=== PATIENT | male | born 1935 | race Caucasian/White ===

== ENCOUNTER 2017-09-14 17:58 | Inpatient (IN) | payer MEDICARE ==
--- NOTE | 2017-09-14 18:13 | ED Physician Chart ---
ED Chief Complaint/HPI - Patient Information Date Seen:: 09/14/17 Time Seen:: 17:50 Chief Complaint:: Chest Pain History of Present Illness:: onset x 2 days of intermittent, exertional, retrosternal chest pain, dyspnea, HUTCHINS, and diaphoresis; no H/As, neck pain, N/V, Abd, Pain, A/N/V/D/C, fever, chills, or urinary s/s Historian:: Patient, EMS Review:: Nurse's Note Reviewed, EMS run form Reviewed <Say Lee - Last Filed: 09/14/17 18:07> - Patient Information Allergies:: Allergies Allergy/AdvReac Type Severity Reaction Status Date / Time ciprofloxacin [From Cipro] Allergy Verified 09/14/17 18:12 Vitals:: Vital Signs - 8 hr 09/14/17 09/14/17 09/14/17 18:12 18:14 18:30 Temp 99.2 F 98.3 F HR 95 93 99 RR 24 20 BP 138/93 138/93 138/93 O2 Sat % 96 95 09/14/17 22:32 Temp HR 95 RR 20 BP 118/63 O2 Sat % 99 <Jason iTneo - Last Filed: 09/14/17 22:43> ED Review of Systems - Review of Systems General/Constitutional: Fever, No chills, No weight loss, No weakness, No diaphoresis, No edema, No loss of appetite Skin: No skin lesions, No rash, No bruising Head: No headache, No light-headedness Eyes: No loss of vision, No pain, No diplopia ENT: No earache, No nasal drainage, No sore throat, No tinnitus Neck: No neck pain, No swelling, No thyromegaly, No stiffness, No mass noted Cardio Vascular: Chest pain, Palpitations, PND, No orthopnea, No edema Pulmonary: SOB, Cough, No sputum, No wheezing GI: No nausea, No vomiting, No diarrhea, No pain, No melena, No hematochezia, No constipation, No hematemesis G/U: No dysuria, No frequency, No hematuria Musculoskeletal: No bone or joint pain, No back pain, No muscle pain Endocrine: Polyuria, Polydipsia Psychiatric: No prior psych history, No depression, No anxiety, No suicidal ideation, No homicidal ideation, No auditory hallucination, No visual hallucination Hematopoietic: No bruising, No lymphadenopathy Allergic/Immuno: No urticaria, No angioedema Neurological: No syncope, No focal symptoms, No weakness, No paresthesia, No headache, No seizure, No dizziness, No confusion, No vertigo <CarinajessicajoaquínSay Last Filed: 09/14/17 18:07> ED Past Medical History - Past Medical History Obtainable: Yes Past Medical History: HTN, DM, CAD, Dyslipidemia Family History: Diabetes Melitus, HTN Social History: Smoker, No Alcohol, No Drug Use, Single Surgical History: CABG Psychiatricy History: None Medication: Reviewed <CarinajessicajoaquínSay Filed: 09/14/17 18:07> ED Physical Exam - Physical Examination General/Constitutional: Awake, Well-developed, well-nourished, Alert, No distress, GCS 15, Non-toxic appearing, Ambulatory Head: Atraumatic Eyes: Lids, conjuctiva normal, PERRL, EOMI Skin: Nl inspection, No rash, No skin lesions, No ecchymosis, Well hydrated, No lymphadenopathy ENMT: External ears, nose nl, TM canals nl, Nasal exam nl, Lips, teeth, gums nl , Oropharynx nl, Tonsils nl Neck: Nontender, Full ROM w/o pain, No JVD, No nuchal rigidity, No bruit, No mass, No stridor Respiratory: Nl effort/Exclusion, Clear to Auscultation, No Wheeze/Rhonchi/Rales Cardio Vascular: RRR, No murmur, gallop, rubs, NL S1 S2, Carotid/Femoral/Distal pulses equal bilaterally GI: No tenderness/rebounding/guarding, No organomegaly, No hernia, Normal BS's, Nondistended, No mass/bruits, No McBurney tenderness : No CVA tenderness Extremities: No tenderness or effusion, Full ROM, normal strength in all extremities, No edema, Normal digits & nails Neuro/Psych: Alert/oriented, DTR's symmetric, Normal sensory exam, Normal motor strength, Judgement/insight normal, Mood normal, Normal gait, No focal deficits Misc: Normal back, No paraspinal tenderness <Say Lee Last Filed: 09/14/17 18:07> ED Labs/Radiology/EKG Results - EKG Interpretations EKG Time:: 18:03 Rate & Rhythm: 111; ST Comments:: old ASMI; non-specific st-t changes <Say Lee - Last Filed: 09/14/17 18:07> - Lab Results Results: Laboratory Tests 09/14/17 09/14/17 09/14/17 18:30 18:30 18:30 WBC 9.9 RBC 4.82 Hgb 13.0 Hct 40.1 L MCV 83.2 MCH 27.1 MCHC Differential 32.5 RDW 18.7 Plt Count 145 L MPV 9.8 Neutrophils % 67.8 Lymphocytes % 19.2 L Monocytes % 11.0 H Eosinophils % 1.0 Basophils % 1.0 PT 10.6 INR 1.02 D-Dimer 2480 H Sodium 140 Potassium 4.3 Chloride 105 Carbon Dioxide 29.4 Anion Gap 9.9 BUN 24 Creatinine 1.7 H Est GFR ( Amer) TNP Est GFR (Non-Af Amer) TNP BUN/Creatinine Ratio 14.1 Glucose 162 H Calcium 8.7 Total Bilirubin 1.0 AST 18 ALT 16 Alkaline Phosphatase 74 Creatine Kinase 40 Troponin I B-Natriuretic Peptide Total Protein 6.7 Albumin 3.3 L Globulin 3.4 Albumin/Globulin Ratio 1.0 Triglycerides 157 H Cholesterol 90 LDL Cholesterol Direct 47 L HDL Cholesterol 24 09/14/17 09/14/17 18:30 18:30 WBC RBC Hgb Hct MCV MCH MCHC Differential RDW Plt Count MPV Neutrophils % Lymphocytes % Monocytes % Eosinophils % Basophils % PT INR D-Dimer Sodium Potassium Chloride Carbon Dioxide Anion Gap BUN Creatinine Est GFR ( Amer) Est GFR (Non-Af Amer) BUN/Creatinine Ratio Glucose Calcium Total Bilirubin AST ALT Alkaline Phosphatase Creatine Kinase Troponin I 0.05 B-Natriuretic Peptide 457.0 H Total Protein Albumin Globulin Albumin/Globulin Ratio Triglycerides Cholesterol LDL Cholesterol Direct HDL Cholesterol - Radiology Results Results: hyflo-l-ttm- plueral effusion <Jason Tineo - Last Filed: 09/14/17 22:43> ED Assessment - Assessment General Assessment: unstable angina <Jason Tineo - Last Filed: 09/14/17 22:43> ED Septic Shock - . Is Septic Shock (SBP<90, OR Lactate>4 mmol\L) present?: No <Say Lee - Last Filed: 09/14/17 18:07> - <6hrs of presentation: Vital Signs: Vital Signs - 8 hr 09/14/17 09/14/17 09/14/17 18:12 18:14 18:30 Temp 99.2 F 98.3 F HR 95 93 99 RR 24 20 BP 138/93 138/93 138/93 O2 Sat % 96 95 09/14/17 22:32 Temp HR 95 RR 20 BP 118/63 O2 Sat % 99 <Jason Tineo - Last Filed: 09/14/17 22:43> ED Reassessment (Disposition) - Reassessment Reassessment Condition:: Unchanged - Patient Disposition Discharge/Transfer:: Acute Care w/in this hosp Admitted to:: ICU Admitting Medical Physician:: Markie Quinones Condition at Disposition:: Unchanged <Jason Tineo - Last Filed: 09/14/17 22:43> ED Discharge Plan <Say Lee - Last Filed: 09/14/17 18:07> <Jason Tineo - Last Filed: 09/14/17 22:43> - Patient Disposition Admit/Discharge/Transfer: Acute Care w/in this hosp Condition at Disposition: Unchanged
[2017-09-14] MEDS ORDERED: Aspirin 81mg Chewable Tab PO STA (18:14)
[2017-09-14] MEDS ORDERED: NITROGLYCERIN OINT 2% 1 INCH PACKET TP STA (18:20)
[2017-09-14] MEDS ORDERED: Aspirin 81mg Chewable Tab ONE (18:28)
[2017-09-14] MEDS ORDERED: NITROGLYCERIN OINT 2% 1 INCH PACKET TP ONE (18:28)
[2017-09-14 18:38] LABS: % LYMPHOCYTES 19.2 % (20.0-50.0); % NEUTROPHILS 67.8 % (40.0-80.0); HEMATOCRIT 40.1 % (41.0-60); MEAN CELL VOLUME 83.2 fl (80-99); MEAN CORPUSCULAR HEMOGLOBIN 27.1 pg (27.0-31.0); MEAN CORPUSCULAR HGB CONC 32.5 pg (28.0-36.0); MEAN PLATELET VOLUME 9.8 fl; NEUTROPHILE ABSOLUTE 6.7 Th/cmm (1.8-8.0); PLATELET COUNT 145 Th/cmm (150-400); RED BLOOD COUNT 4.82 Mil/cmm (3.80-5.80); RED CELL DISTRIBUTION WIDTH 18.7 % (11.5-20.0); WHITE BLOOD COUNT 9.9 Th/cmm (4.8-10.8)
[2017-09-14 19:02] LABS: INR 1.02 (0.5-1.4); PROTHROMBIN TIME (TEST) 10.6 SECONDS (9.5-11.5)
[2017-09-14 19:04] LABS: ALKALINE PHOSPHATASE 74 U/L (34-104); ANION GAP 9.9 (7.0-16.0); BUN - UREA NITROGEN 24 mg/dL (7-25); BUN/CREATININE RATIO 14.1; CALCIUM SERUM 8.7 mg/dL (8.6-10.3); CARBON DIOXIDE 29.4 mEq/L (21.0-31.0); CHLORIDE 105 mEq/L (98-107); CHOLESTEROL 90 mg/dL (<200); CREATININE - SERUM 1.7 mg/dL (0.7-1.3); GLUCOSE 162 mg/dL (70-105); POTASSIUM SERUM 4.3 mEq/L (3.5-5.1); SGOT 18 U/L (13-39); SGPT/ALT 16 U/L (7-52); SODIUM SERUM 140 mEq/L (136-145); TRIGLYCERIDES 157 mg/dL (<150)
[2017-09-14] MEDS ORDERED: Acetaminophen 500 MG TAB ONE (22:05)
[2017-09-14 23:32] LABS: ABG SOURCE ATERIAL; HCO3 28.8 mEq/L (20.0-26.0); pH 7.47 (7.35-7.45)
[2017-09-14 23:33] LABS: ALLEN TEST Positive; FIO2 28
[2017-09-15] MEDS: INSULIN ASPART SLIDING SCALE 100 UNITS/ML UNIT SUBQ SCH ×5 (00:06→23:51)
[2017-09-15 03:28] LABS: ANION GAP 9.2 (7.0-16.0); BUN - UREA NITROGEN 26 mg/dL (7-25); BUN/CREATININE RATIO 15.3; CALCIUM SERUM 8.2 mg/dL (8.6-10.3); CARBON DIOXIDE 28.6 mEq/L (21.0-31.0); CHLORIDE 106 mEq/L (98-107); CHOLESTEROL 82 mg/dL (<200); CREATININE - SERUM 1.7 mg/dL (0.7-1.3); POTASSIUM SERUM 3.8 mEq/L (3.5-5.1); SODIUM SERUM 140 mEq/L (136-145); TRIGLYCERIDES 207 mg/dL (<150)
[2017-09-15 03:31] LABS: GLUCOSE 180 mg/dL (70-105)
[2017-09-15 03:33] LABS: % BASOPHILS 0.8 % (0.0-2.0); % EOSINOPHILS 1.3 % (0.0-5.0); % LYMPHOCYTES 28.2 % (20.0-50.0); % MONOCYTES 11.2 % (2.0-10.0); % NEUTROPHILS 58.5 % (40.0-80.0); HEMATOCRIT 35.9 % (41.0-60); MEAN CELL VOLUME 83.3 fl (80-99); MEAN CORPUSCULAR HEMOGLOBIN 27.8 pg (27.0-31.0); MEAN CORPUSCULAR HGB CONC 33.4 pg (28.0-36.0); MEAN PLATELET VOLUME 10.5 fl; NEUTROPHILE ABSOLUTE 4.2 Th/cmm (1.8-8.0); PLATELET COUNT 128 Th/cmm (150-400); RED BLOOD COUNT 4.31 Mil/cmm (3.80-5.80); RED CELL DISTRIBUTION WIDTH 18.5 % (11.5-20.0)
[2017-09-15 03:34] LABS: WHITE BLOOD COUNT 7.2 Th/cmm (4.8-10.8)
[2017-09-15 05:00] LABS: URINE BILIRUBIN SMALL (NEGATIVE); URINE BLOOD LARGE (NEGATIVE); URINE GLUCOSE (UA) NEGATIVE (NEGATIVE); URINE KETONE 15 mg/dL (NEGATIVE); URINE PROTEIN 30 mg/dL (NEGATIVE); URINE UROBILINOGEN 0.2 E.U./dL (0.2 - 1.0)
[2017-09-15 05:01] LABS: URINE COLOR YELLOW
[2017-09-15 05:06] LABS: URINE BACTERIA 1+ /hpf (NONE SEEN); URINE EPITHELIAL CELLS OCCASIONAL /lpf (FEW); URINE RBC 25-50 /hpf (0-5)
--- NOTE | 2017-09-15 07:38 | Diagnostic Imaging Report ---
Portable chest x-ray Time: 1919 hours History: Chest pain Allowing for portable technique the heart size is normal. No focal pulmonary parenchymal processes. No hilar or mediastinal abnormalities. Bilateral pacemakers identified in place. Multiple metallic sutures are noted status post transsternal thoracotomy. Impression: No acute abnormalities.
--- NOTE | 2017-09-15 09:35 | History and Physical ---
History of Present Illness - HPI Chief Complaint: chest pain and sob HPI: This is a 82 year old male who has a 1 day history of Chest pain and Sob. According to patient he was walking about 20 ft when he felt very winded associated with SOB, he was recently discharged from [facility]. Due to the following reasons patient is now admitted. Upon examination patient denies any chest pain but complains of right shoulder pain he states that the pain just started here at the hospital and denies any recent falls or injuries. Vital Signs: Last Vital Signs Temp 98.2 F 09/15/17 05:00 Pulse 89 09/15/17 07:26 Resp 19 09/15/17 07:26 BP 110/66 09/15/17 07:00 Pulse Ox 95 09/15/17 07:26 Past Medical History Cardiovascular: Report: CHF, HTN GI: Report: No Pertinent Hx Musculoskeletal: Report: No Pertinent Hx Rheumatologic: Report: No pertinent Hx - Past Surgical History Past Surgical History: CABG Social History Smoke: No Alcohol: None Drugs: None Lives: With Family, Other - Medications Home Medications: Home Medication Medication Instructions Recorded Type Unobtainable [Unobtainable] 09/14/17 History - Allergies Allergies/Adverse Reactions: Allergies Allergy/AdvReac Type Severity Reaction Status Date / Time ciprofloxacin [From Cipro] Allergy Verified 09/14/17 18:12 Review of Systems - Review of Systems Constitutional: Report: No Significant Eyes: Report: No Significant Respiratory: Report: Other (SOB when o2 is off) Cardiovascular: Report: No Significant Gastrointestinal: Report: No Significant Musculoskeletal: Report: Shoulder Pain (right) Neurological: Report: Weakness Physical Exam - Physical Exam HEENT: Report: Ears Nose Throat within normal limits Neck: Report: Within normal limits Cardiovascular Systems: Report: +s1/s2 noted, Regular, Rate and Rhythm Respiratory: Report: Breath Sounds are within normal limits, Clear to Auscultation of lung perkins Abdomen: Report: Non-tender to palpation Back: Report: Inspection of back is within normal limits. Extremities: Report: Non-tender to palpation. Skin: Report: Color of skin is within normal limits Neuro/Psych: Report: Mood affect is within normal limits, A+Ox3 - Lab Results All Lab Results last 24 hours: Laboratory Results - last 24 hr 09/15/17 09/15/17 09/15/17 00:03 01:40 03:03 WBC 7.2 D RBC 4.31 Hgb 12.0 Hct 35.9 L D MCV 83.3 MCH 27.8 MCHC Differential 33.4 RDW 18.5 Plt Count 128 L MPV 10.5 Neutrophils % 58.5 Lymphocytes % 28.2 Monocytes % 11.2 H Eosinophils % 1.3 Basophils % 0.8 D-Dimer Sodium Potassium Chloride Carbon Dioxide Anion Gap BUN Creatinine Est GFR ( Amer) Est GFR (Non-Af Amer) BUN/Creatinine Ratio Glucose POC Glucose 122 H Hemoglobin A1c % Calcium Troponin I B-Natriuretic Peptide Triglycerides Cholesterol LDL Cholesterol Direct HDL Cholesterol TSH Urine Source RANDOM Urine Color YELLOW Urine Clarity CLOUDY Urine pH 5.0 Ur Specific [place] 1.025 Urine Protein 30 H Urine Glucose (UA) NEGATIVE Urine Ketones 15 H Urine Blood LARGE H Urine Nitrate NEGATIVE Urine Bilirubin SMALL H Urine Urobilinogen 0.2 Ur Leukocyte Esterase MODERATE H Urine RBC 25-50 H Urine WBC 6-10 H Ur Epithelial Cells OCCASIONAL Urine Bacteria 1+ H Urine Yeast MANY H 09/15/17 09/15/17 09/15/17 03:03 03:03 03:03 WBC RBC Hgb Hct MCV MCH MCHC Differential RDW Plt Count MPV Neutrophils % Lymphocytes % Monocytes % Eosinophils % Basophils % D-Dimer 2270 H Sodium 140 Potassium 3.8 Chloride 106 Carbon Dioxide 28.6 Anion Gap 9.2 BUN 26 H Creatinine 1.7 H Est GFR ( Amer) TNP Est GFR (Non-Af Amer) TNP BUN/Creatinine Ratio 15.3 Glucose 180 H D POC Glucose Hemoglobin A1c % Calcium 8.2 L Troponin I 0.05 B-Natriuretic Peptide 292.0 H Triglycerides 207 H Cholesterol 82 LDL Cholesterol Direct 48 L HDL Cholesterol 19 L TSH Urine Source Urine Color Urine Clarity Urine pH Ur Specific [place] Urine Protein Urine Glucose (UA) Urine Ketones Urine Blood Urine Nitrate Urine Bilirubin Urine Urobilinogen Ur Leukocyte Esterase Urine RBC Urine WBC Ur Epithelial Cells Urine Bacteria Urine Yeast 09/15/17 09/15/17 09/15/17 03:03 03:03 06:46 WBC RBC Hgb Hct MCV MCH MCHC Differential RDW Plt Count MPV Neutrophils % Lymphocytes % Monocytes % Eosinophils % Basophils % D-Dimer Sodium Potassium Chloride Carbon Dioxide Anion Gap BUN Creatinine Est GFR ( Amer) Est GFR (Non-Af Amer) BUN/Creatinine Ratio Glucose POC Glucose 185 H Hemoglobin A1c % 7.4 H Calcium Troponin I B-Natriuretic Peptide Triglycerides Cholesterol LDL Cholesterol Direct HDL Cholesterol TSH 1.28 Urine Source Urine Color Urine Clarity Urine pH Ur Specific [place] Urine Protein Urine Glucose (UA) Urine Ketones Urine Blood Urine Nitrate Urine Bilirubin Urine Urobilinogen Ur Leukocyte Esterase Urine RBC Urine WBC Ur Epithelial Cells Urine Bacteria Urine Yeast - Assessment Assessment: Current Active Problems Problem Status Onset CHEST PAIN AND EXERTIONAL DYSPNEA Acute Elevated ddimer Acute UTI HTN hx cabg - Plan Plan: VQ SCAN and venous doppler cardiology consult ok to move out of ICU if ok with Cardio PT eval pain mgmt fall precautions monitor troponin continue current plan of care D/W Dr. Quinones
[2017-09-15] MEDS ORDERED: Ipratropium Neb 0.5 mg/2.5 mL UD HHN PRN (09:39)
[2017-09-15] MEDS ORDERED: guaiFENesin 200 MG/10 ML UDC PO PRN (09:39)
[2017-09-15] MEDS ORDERED: Albuterol Nebulizer 2.5mg/3mL HHN PRN (09:39)
--- NOTE | 2017-09-15 10:47 | Diagnostic Imaging Report ---
Bilateral lower extremity Doppler venous ultrasound exam HISTORY: Pain/swelling Sonographic sector images were obtained through the deep venous systems of both legs. Associated Doppler data was obtained. The exam demonstrates patency of the common femoral, superficial femoral, popliteal, and posterior tibial veins bilaterally. Specifically, no thrombus is seen. There are normal compressibility and augmentation responses. IMPRESSION: Negative exam for deep vein thrombophlebitis.
[2017-09-15] MEDS: Levofloxacin 500mg/100mL 500 MG/100 ML BAG IV SCH (11:53)
[2017-09-15] MEDS ORDERED: Magnesium Hydroxide (MOM) 30 mL UDC PO PRN (14:27)
--- NOTE | 2017-09-15 22:08 | Consultation ---
DATE OF CONSULTATION: HEMATOLOGY ONCOLOGY CONSULTATION REFERRING PHYSICIAN: Dr. Quinones. REASON FOR CONSULTATION: Low platelets and elevated D-dimer. HISTORY OF PRESENT ILLNESS: The patient is an 82-year-old pleasant gentleman, who had CABG surgery recently and required continued hospitalized in [facility] and had rehab. He was doing well until a few days when he started getting shortness of breath on minimal activity; therefore, he was admitted and found to have elevated D-dimer and with slight drop in the platelet count. The venous duplex study of lower extremity was negative. Chest x-ray was negative. The patient had slight elevation of the creatinine, which prohibited doing CT angiogram, therefore V/Q scan was done and it was taken; however, the results are not available yet. PAST MEDICAL HISTORY: Hypertension, CHF, coronary artery disease. PAST SURGICAL HISTORY: CABG. MEDICATIONS: Reviewed. PHYSICAL EXAMINATION: GENERAL: Awake, not in respiratory distress. VITAL SIGNS: Stable. HEENT: Atraumatic. NECK: No jugular venous distention. No lymph nodes. CHEST: Clear. Sternotomy scar well healed. ABDOMEN: Soft. EXTREMITIES: Unremarkable. LABORATORY DATA: Creatinine 1.7. D-dimer 2270 with normal upper limited 400. White count 7.2, platelets 128, and hemoglobin 12. ASSESSMENT: Elevated D-dimer in this patient with shortness of breath. Normal chest x-ray. Will require evaluation for pulmonary embolus. I am starting the patient on prophylactic dose of heparin for now and await the results of the V/Q scan. Thank you, Dr. Quinones for allowing us to participating in the care of this interesting case for you. JOB# [id number]
[2017-09-16 06:32] LABS: % BASOPHILS 0.3 % (0.0-2.0); % EOSINOPHILS 1.2 % (0.0-5.0); % LYMPHOCYTES 25.1 % (20.0-50.0); % MONOCYTES 9.9 % (2.0-10.0); % NEUTROPHILS 63.5 % (40.0-80.0); HEMATOCRIT 36.5 % (41.0-60); HEMOGLOBIN 11.9 gm/dL (12-16); MEAN CELL VOLUME 83.7 fl (80-99); MEAN CORPUSCULAR HEMOGLOBIN 27.4 pg (27.0-31.0); MEAN CORPUSCULAR HGB CONC 32.8 pg (28.0-36.0); NEUTROPHILE ABSOLUTE 3.9 Th/cmm (1.8-8.0); RED BLOOD COUNT 4.36 Mil/cmm (3.80-5.80); RED CELL DISTRIBUTION WIDTH 18.4 % (11.5-20.0); WHITE BLOOD COUNT 6.2 Th/cmm (4.8-10.8)
[2017-09-16] MEDS: INSULIN ASPART SLIDING SCALE 100 UNITS/ML UNIT SUBQ SCH ×4 (06:41→23:53)
[2017-09-16 06:44] LABS: PLATELET COUNT 162 Th/cmm (150-400)
[2017-09-16 07:01] LABS: ANION GAP 10.5 (7.0-16.0); BUN - UREA NITROGEN 20 mg/dL (7-25); BUN/CREATININE RATIO 13.3; CALCIUM SERUM 8.9 mg/dL (8.6-10.3); CARBON DIOXIDE 28.2 mEq/L (21.0-31.0); CHLORIDE 106 mEq/L (98-107); CREATININE - SERUM 1.5 mg/dL (0.7-1.3); GLUCOSE 127 mg/dL (70-105); POTASSIUM SERUM 3.7 mEq/L (3.5-5.1); SODIUM SERUM 141 mEq/L (136-145)
--- NOTE | 2017-09-16 07:33 | Diagnostic Imaging Report ---
Exam: VQ scan HISTORY: Pulmonary embolus. Findings: Utilizing 5.3 mCi of technetium 99 M MAA the perfusion portion examination was performed multiple planes. Patient was not able to tolerate the ventilation portion examination therefore the study is limited. The study demonstrates normal perfusion of the lung parenchyma bilaterally without filling defects. IMPRESSION: Limited examination, only perfusion portion examination available for interpretation. Grossly no evidence of for pulmonary emboli bilaterally.
[2017-09-16] MEDS: Levofloxacin 500mg/100mL 500 MG/100 ML BAG IV SCH (10:09)
--- NOTE | 2017-09-16 10:12 | General Progress Note ---
Subjective - Review of Systems Events since last encounter: patient c/o right shoulder pain denies cp,sob Objective - Results Result Diagrams: 09/16/17 06:20 09/16/17 06:20 Recent Labs: Laboratory Last Values WBC 6.2 Th/cmm (4.8-10.8) 09/16/17 06:20 RBC 4.36 Mil/cmm (3.80-5.80) 09/16/17 06:20 Hgb 11.9 gm/dL (12-16) L 09/16/17 06:20 Hct 36.5 % (41.0-60) L 09/16/17 06:20 MCV 83.7 fl (80-99) 09/16/17 06:20 MCH 27.4 pg (27.0-31.0) 09/16/17 06:20 MCHC Differential 32.8 pg (28.0-36.0) 09/16/17 06:20 RDW 18.4 % (11.5-20.0) 09/16/17 06:20 Plt Count 162 Th/cmm (150-400) D 09/16/17 06:20 MPV 10.0 fl 09/16/17 06:20 Neutrophils % 63.5 % (40.0-80.0) 09/16/17 06:20 Lymphocytes % 25.1 % (20.0-50.0) 09/16/17 06:20 Monocytes % 9.9 % (2.0-10.0) 09/16/17 06:20 Eosinophils % 1.2 % (0.0-5.0) 09/16/17 06:20 Basophils % 0.3 % (0.0-2.0) 09/16/17 06:20 PT 10.6 SECONDS (9.5-11.5) 09/14/17 18:30 INR 1.02 (0.5-1.4) 09/14/17 18:30 D-Dimer 2270 ng/mL (100-400) H 09/15/17 03:03 Specimen Source ATERIAL 09/14/17 22:46 Sample Site Right Radial 09/14/17 22:46 pH 7.47 (7.35-7.45) H 09/14/17 22:46 pCO2 40.0 mmHg (35.0-45.0) 09/14/17 22:46 pO2 89.0 mmHg (80.0-100.0) 09/14/17 22:46 HCO3 28.8 mEq/L (20.0-26.0) H 09/14/17 22:46 Base Excess 5.0 mEq/L (-3.0-3.0) H 09/14/17 22:46 O2 Saturation 97.0 % (92.0-100.0) 09/14/17 22:46 Javid Test Positive 09/14/17 22:46 Vent Rate N/A 09/14/17 22:46 Inspired O2 28 09/14/17 22:46 Tidal Volume N/A 09/14/17 22:46 PEEP N/A 09/14/17 22:46 Pressure (ins/psv/peep) N/A 09/14/17 22:46 Critical Value N/A 09/14/17 22:46 Sodium 141 mEq/L (136-145) 09/16/17 06:20 Potassium 3.7 mEq/L (3.5-5.1) 09/16/17 06:20 Chloride 106 mEq/L (98-107) 09/16/17 06:20 Carbon Dioxide 28.2 mEq/L (21.0-31.0) 09/16/17 06:20 Anion Gap 10.5 (7.0-16.0) 09/16/17 06:20 BUN 20 mg/dL (7-25) 09/16/17 06:20 Creatinine 1.5 mg/dL (0.7-1.3) H 09/16/17 06:20 Est GFR ( Amer) TNP 09/16/17 06:20 Est GFR (Non-Af Amer) TNP 09/16/17 06:20 BUN/Creatinine Ratio 13.3 09/16/17 06:20 Glucose 127 mg/dL (70-105) H 09/16/17 06:20 POC Glucose 116 MG/DL (70 - 105) H 09/16/17 06:20 Hemoglobin A1c % 7.4 % (4.0-6.0) H 09/15/17 03:03 Calcium 8.9 mg/dL (8.6-10.3) 09/16/17 06:20 Total Bilirubin 1.0 mg/dL (0.3-1.0) 09/14/17 18:30 AST 18 U/L (13-39) 09/14/17 18:30 ALT 16 U/L (7-52) 09/14/17 18:30 Alkaline Phosphatase 74 U/L (34-104) 09/14/17 18:30 Creatine Kinase 40 U/L (30-223) 09/14/17 18:30 Troponin I 0.03 ng/mL (0.01-0.05) 09/15/17 19:28 B-Natriuretic Peptide 292.0 pg/mL (5.0-100.0) H 09/15/17 03:03 Total Protein 6.7 gm/dL (6.0-8.3) 09/14/17 18:30 Albumin 3.3 gm/dL (4.2-5.5) L 09/14/17 18:30 Globulin 3.4 gm/dL 09/14/17 18:30 Albumin/Globulin Ratio 1.0 (1.0-1.8) 09/14/17 18:30 Triglycerides 207 mg/dL (<150) H 09/15/17 03:03 Cholesterol 82 mg/dL (<200) 09/15/17 03:03 LDL Cholesterol Direct 48 mg/dL (75-193) L 09/15/17 03:03 HDL Cholesterol 19 mg/dL (23-92) L 09/15/17 03:03 TSH 1.28 uIU/ml (0.34-5.60) 09/15/17 03:03 Urine Source RANDOM 09/15/17 01:40 Urine Color YELLOW 09/15/17 01:40 Urine Clarity CLOUDY (CLEAR) 09/15/17 01:40 Urine pH 5.0 (4.6 - 8.0) 09/15/17 01:40 Ur Specific [place] 1.025 (1.005-1.030) 09/15/17 01:40 Urine Protein 30 mg/dL (NEGATIVE) H 09/15/17 01:40 Urine Glucose (UA) NEGATIVE mg/dL (NEGATIVE) 09/15/17 01:40 Urine Ketones 15 mg/dL (NEGATIVE) H 09/15/17 01:40 Urine Blood LARGE (NEGATIVE) H 09/15/17 01:40 Urine Nitrate NEGATIVE (NEGATIVE) 09/15/17 01:40 Urine Bilirubin SMALL (NEGATIVE) H 09/15/17 01:40 Urine Urobilinogen 0.2 E.U./dL (0.2 - 1.0) 09/15/17 01:40 Ur Leukocyte Esterase MODERATE (NEGATIVE) H 09/15/17 01:40 Urine RBC 25-50 /hpf (0-5) H 09/15/17 01:40 Urine WBC 6-10 /hpf (0-5) H 09/15/17 01:40 Ur Epithelial Cells OCCASIONAL /lpf (FEW) 09/15/17 01:40 Urine Bacteria 1+ /hpf (NONE SEEN) H 09/15/17 01:40 Urine Yeast MANY /hpf (NONE SEEN) H 09/15/17 01:40 - Physical Exam Vitals and I&O: Vital Signs Temp 97.7 F 09/16/17 00:00 Pulse 93 09/16/17 08:59 Resp 16 09/16/17 08:59 BP 106/62 09/16/17 00:00 Pulse Ox 98 09/16/17 08:59 Intake & Output 09/15/17 09/16/17 09/16/17 18:59 06:59 18:59 Intake Total 100 Balance 100 Intake: Intake, IV Amount 100 Levofloxacin 500mg/100mL 100 500 mg In 100 ml @ 100 mls/hr IV Q24HR [facility] Rx#: [id number] Other: Stool Characteristics Soft Formed Active Medications: Current Medications Acetaminophen (Tylenol) 650 mg PO Q4HR PRN PRN Reason: Pain Or Fever above 101F Stop: 11/14/17 09:38 Last Admin: 09/15/17 10:41 Dose: 650 mg Albuterol Sulfate (Albuterol 2.5mg/3ml Neb Ud) 2.5 mg HHN Q2HRT PRN PRN Reason: Shortness of Breath or Wheeze Stop: 11/14/17 09:38 Clopidogrel Bisulfate (Plavix) 75 mg PO DAILY [facility] Stop: 11/15/17 08:59 Last Admin: 09/16/17 08:27 Dose: 75 mg Guaifenesin (Robitussin) 100 mg PO Q4H PRN PRN Reason: Cough or Congestion Stop: 11/14/17 09:38 Heparin Sodium (Porcine) (Heparin) 5,000 units SUBQ Q8HR [facility] Stop: 11/14/17 21:59 Last Admin: 09/16/17 06:46 Dose: 5,000 units Levofloxacin (Levaquin Pb) 500 mg in 100 mls @ 100 mls/hr IV Q24HR ROGELIO Stop: 11/14/17 09:59 Last Admin: 09/16/17 10:09 Dose: 100 mls/hr Insulin Aspart (Novolog Insulin Sliding Scale) 0 units SUBQ Q6HR ROGELIO PRN Reason: Protocol Stop: 11/14/17 00:00 Last Admin: 09/16/17 06:41 Dose: Not Given Ipratropium [place] (Atrovent Neb 0.5mg/2.5ml) 0.5 mg HHN Q2HRT PRN PRN Reason: Shortness of Breath or Wheeze Stop: 11/14/17 09:38 Magnesium Hydroxide (Milk Of Magnesia) 30 ml PO DAILY PRN PRN Reason: CONSTIPATION Stop: 11/14/17 14:26 Ondansetron HCl (Zofran) 4 mg IV Q8H PRN PRN Reason: Nausea / Vomiting Stop: 11/14/17 09:38 Temazepam (Restoril) 15 mg PO HS PRN; Protocol PRN Reason: Insomnia Stop: 11/14/17 21:24 Last Admin: 09/15/17 21:38 Dose: 15 mg Assessment/Plan - Problem List Patient Problems: All Active Problems CHEST PAIN AND EXERTIONAL DYSPNEA (Acute)
[2017-09-16] MEDS ORDERED: LINACLOTIDE PO PRN (13:47)
--- NOTE | 2017-09-16 15:47 | Cardiology ---
09/15/2017 PROCEDURE: Echocardiogram. The patient of Dr. Quinones. M-MODE ECHOCARDIOGRAM: Mitral valve, anterior leaflet of mitral valve shows normal excursion, EF velocity. Posterior leaflet of mitral valve shows normal excursion. Left ventricular posterior wall shows increased thickness, normal excursion. Interventricular septum shows increased thickness, normal excursion, hypertrophy of the left ventricle, ejection fraction 50%. Left atrium normal. Aortic root shows normal dimension, normal excursion of aortic leaflets. 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 2D ECHO: Long axis view showed normal sized left ventricle with hypertrophy of the left ventricle. Left atrium normal. Aortic root shows normal dimension, normal excursion of aortic leaflets. Short axis view of mitral valve normal. Short axis view of aortic valve normal. Apical four chamber view showed normal sized left ventricle with hypertrophy of the left ventricle. Left atrium normal. Right ventricular cavity, right atrium normal. No pericardial effusion. 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 Left atrial enlargement. Doppler study showed trace aortic regurgitation, mild tricuspid regurgitation, prominent A wave consistent with poor compliance of left ventricle. [facility]# [id number]
[2017-09-16] MEDS ORDERED: FLUTICASONE PO SCH (17:00)
[2017-09-16] MEDS ORDERED: SALMETEROL PO SCH (17:00)
[2017-09-16] MEDS ORDERED: cefTRIAXone 1 GM in Sodium Chloride 0.9% 50 ML IV SCH (18:00)
[2017-09-16] MEDS ORDERED: Budesonide 0.5 Mg/2 mL Ud HHN SCH (19:00)
[2017-09-16] MEDS ORDERED: Atorvastatin Calcium 10 MG TAB PO SCH (21:00)
[2017-09-17] MEDS: INSULIN ASPART SLIDING SCALE 100 UNITS/ML UNIT SUBQ SCH ×3 (06:18→17:45)
[2017-09-17] MEDS ORDERED: Levothyroxine 0.1 Mg Tab PO SCH (07:00)
[2017-09-17] MEDS ORDERED: Aspirin 81mg Chewable Tab PO SCH (09:00)
[2017-09-17] MEDS ORDERED: Insulin Detemir 100 units/mL 10mL Vial SUBQ SCH (09:00)
[2017-09-17] MEDS ORDERED: Pantoprazole 40 mg EC Tab PO SCH (09:00)
--- NOTE | 2017-09-17 15:30 | General Progress Note ---
Subjective - Review of Systems Service Date: 09/16/17 Events since last encounter: no more chest pain trace blood in urine Objective - Results Result Diagrams: 09/16/17 06:20 09/16/17 06:20 Recent Labs: Laboratory Last Values WBC 6.2 Th/cmm (4.8-10.8) 09/16/17 06:20 RBC 4.36 Mil/cmm (3.80-5.80) 09/16/17 06:20 Hgb 11.9 gm/dL (12-16) L 09/16/17 06:20 Hct 36.5 % (41.0-60) L 09/16/17 06:20 MCV 83.7 fl (80-99) 09/16/17 06:20 MCH 27.4 pg (27.0-31.0) 09/16/17 06:20 MCHC Differential 32.8 pg (28.0-36.0) 09/16/17 06:20 RDW 18.4 % (11.5-20.0) 09/16/17 06:20 Plt Count 162 Th/cmm (150-400) D 09/16/17 06:20 MPV 10.0 fl 09/16/17 06:20 Neutrophils % 63.5 % (40.0-80.0) 09/16/17 06:20 Lymphocytes % 25.1 % (20.0-50.0) 09/16/17 06:20 Monocytes % 9.9 % (2.0-10.0) 09/16/17 06:20 Eosinophils % 1.2 % (0.0-5.0) 09/16/17 06:20 Basophils % 0.3 % (0.0-2.0) 09/16/17 06:20 PT 10.6 SECONDS (9.5-11.5) 09/14/17 18:30 INR 1.02 (0.5-1.4) 09/14/17 18:30 D-Dimer 2270 ng/mL (100-400) H 09/15/17 03:03 Specimen Source ATERIAL 09/14/17 22:46 Sample Site Right Radial 09/14/17 22:46 pH 7.47 (7.35-7.45) H 09/14/17 22:46 pCO2 40.0 mmHg (35.0-45.0) 09/14/17 22:46 pO2 89.0 mmHg (80.0-100.0) 09/14/17 22:46 HCO3 28.8 mEq/L (20.0-26.0) H 09/14/17 22:46 Base Excess 5.0 mEq/L (-3.0-3.0) H 09/14/17 22:46 O2 Saturation 97.0 % (92.0-100.0) 09/14/17 22:46 Javid Test Positive 09/14/17 22:46 Vent Rate N/A 09/14/17 22:46 Inspired O2 28 09/14/17 22:46 Tidal Volume N/A 09/14/17 22:46 PEEP N/A 09/14/17 22:46 Pressure (ins/psv/peep) N/A 09/14/17 22:46 Critical Value N/A 09/14/17 22:46 Sodium 141 mEq/L (136-145) 09/16/17 06:20 Potassium 3.7 mEq/L (3.5-5.1) 09/16/17 06:20 Chloride 106 mEq/L (98-107) 09/16/17 06:20 Carbon Dioxide 28.2 mEq/L (21.0-31.0) 09/16/17 06:20 Anion Gap 10.5 (7.0-16.0) 09/16/17 06:20 BUN 20 mg/dL (7-25) 09/16/17 06:20 Creatinine 1.5 mg/dL (0.7-1.3) H 09/16/17 06:20 Est GFR ( Amer) TNP 09/16/17 06:20 Est GFR (Non-Af Amer) TNP 09/16/17 06:20 BUN/Creatinine Ratio 13.3 09/16/17 06:20 Glucose 127 mg/dL (70-105) H 09/16/17 06:20 POC Glucose 239 MG/DL (70 - 105) H 09/17/17 11:29 Hemoglobin A1c % 7.4 % (4.0-6.0) H 09/15/17 03:03 Calcium 8.9 mg/dL (8.6-10.3) 09/16/17 06:20 Total Bilirubin 1.0 mg/dL (0.3-1.0) 09/14/17 18:30 AST 18 U/L (13-39) 09/14/17 18:30 ALT 16 U/L (7-52) 09/14/17 18:30 Alkaline Phosphatase 74 U/L (34-104) 09/14/17 18:30 Creatine Kinase 40 U/L (30-223) 09/14/17 18:30 Troponin I 0.03 ng/mL (0.01-0.05) 09/15/17 19:28 B-Natriuretic Peptide 292.0 pg/mL (5.0-100.0) H 09/15/17 03:03 Total Protein 6.7 gm/dL (6.0-8.3) 09/14/17 18:30 Albumin 3.3 gm/dL (4.2-5.5) L 09/14/17 18:30 Globulin 3.4 gm/dL 09/14/17 18:30 Albumin/Globulin Ratio 1.0 (1.0-1.8) 09/14/17 18:30 Triglycerides 207 mg/dL (<150) H 09/15/17 03:03 Cholesterol 82 mg/dL (<200) 09/15/17 03:03 LDL Cholesterol Direct 48 mg/dL (75-193) L 09/15/17 03:03 HDL Cholesterol 19 mg/dL (23-92) L 09/15/17 03:03 TSH 1.28 uIU/ml (0.34-5.60) 09/15/17 03:03 Urine Source RANDOM 09/15/17 01:40 Urine Color YELLOW 09/15/17 01:40 Urine Clarity CLOUDY (CLEAR) 09/15/17 01:40 Urine pH 5.0 (4.6 - 8.0) 09/15/17 01:40 Ur Specific [place] 1.025 (1.005-1.030) 09/15/17 01:40 Urine Protein 30 mg/dL (NEGATIVE) H 09/15/17 01:40 Urine Glucose (UA) NEGATIVE mg/dL (NEGATIVE) 09/15/17 01:40 Urine Ketones 15 mg/dL (NEGATIVE) H 09/15/17 01:40 Urine Blood LARGE (NEGATIVE) H 09/15/17 01:40 Urine Nitrate NEGATIVE (NEGATIVE) 09/15/17 01:40 Urine Bilirubin SMALL (NEGATIVE) H 09/15/17 01:40 Urine Urobilinogen 0.2 E.U./dL (0.2 - 1.0) 09/15/17 01:40 Ur Leukocyte Esterase MODERATE (NEGATIVE) H 09/15/17 01:40 Urine RBC 25-50 /hpf (0-5) H 09/15/17 01:40 Urine WBC 6-10 /hpf (0-5) H 09/15/17 01:40 Ur Epithelial Cells OCCASIONAL /lpf (FEW) 09/15/17 01:40 Urine Bacteria 1+ /hpf (NONE SEEN) H 09/15/17 01:40 Urine Yeast MANY /hpf (NONE SEEN) H 09/15/17 01:40 - Physical Exam Vitals and I&O: Vital Signs Temp 98.6 F 09/17/17 12:00 Pulse 89 09/17/17 12:00 Resp 17 09/17/17 12:15 BP 117/70 09/17/17 12:00 Pulse Ox 96 09/17/17 12:00 Intake & Output 09/16/17 09/17/17 09/17/17 18:59 06:59 18:59 Intake Total 50 500 Output Total 900 Balance 50 -400 Weight (lbs) 72.291 kg Intake: Intake, IV Amount 50 cefTRIAXone 1 gm In 50 Sodium Chloride 0.9% 50 ml @ 100 mls/hr IV Q24HR [facility] Rx#:[id number] Oral 500 Output: Urine 900 Other: # Voids 5 # Bowel Movements 0 Active Medications: Current Medications Acetaminophen (Tylenol) 650 mg PO Q4HR PRN PRN Reason: Pain Or Fever above 101F Stop: 11/14/17 09:38 Last Admin: 09/17/17 14:41 Dose: 650 mg Albuterol Sulfate (Albuterol 2.5mg/3ml Neb Ud) 2.5 mg HHN Q2HRT PRN PRN Reason: Shortness of Breath or Wheeze Stop: 11/14/17 09:38 Aspirin (Aspirin Chewable) 81 mg PO DAILY [facility] Stop: 11/16/17 08:59 Last Admin: 09/17/17 09:21 Dose: 81 mg Atorvastatin Calcium (Lipitor) 20 mg PO HS [facility] Stop: 11/15/17 20:59 Last Admin: 09/16/17 20:50 Dose: 20 mg Budesonide (Pulmicort) 0.5 mg HHN BIDRT [facility] Stop: 11/15/17 18:59 Carvedilol (Coreg) 6.25 mg PO DAILY [facility] Stop: 11/16/17 08:59 Last Admin: 09/17/17 09:21 Dose: 6.25 mg Clopidogrel Bisulfate (Plavix) 75 mg PO DAILY [facility] Stop: 11/15/17 08:59 Last Admin: 09/17/17 09:22 Dose: Not Given Colchicine (Colcrys) 0.6 mg PO BID [facility] Stop: 11/15/17 16:59 Last Admin: 09/17/17 09:20 Dose: 0.6 mg Furosemide (Lasix) 40 mg PO QAM [facility] Stop: 11/15/17 08:59 Last Admin: 09/17/17 09:21 Dose: 40 mg Gabapentin (Neurontin) 300 mg PO TID [facility] Stop: 11/15/17 13:59 Last Admin: 09/17/17 14:42 Dose: 300 mg Guaifenesin (Robitussin) 100 mg PO Q4H PRN PRN Reason: Cough or Congestion Stop: 11/14/17 09:38 Ceftriaxone Sodium 1 gm/ (Sodium Chloride) 50 mls @ 100 mls/hr IV Q24HR [facility] Stop: 11/15/17 17:59 Last Infusion: 09/16/17 17:34 Dose: Infused Insulin Aspart (Novolog Insulin Sliding Scale) 0 units SUBQ Q6HR [facility] PRN Reason: Protocol Stop: 11/14/17 00:00 Last Admin: 09/17/17 12:46 Dose: 4 units Insulin Detemir (Levemir Insulin) 20 units SUBQ DAILY [facility] Stop: 11/16/17 08:59 Last Admin: 09/17/17 09:22 Dose: Not Given Ipratropium [place] (Atrovent Neb 0.5mg/2.5ml) 0.5 mg HHN Q2HRT PRN PRN Reason: Shortness of Breath or Wheeze Stop: 11/14/17 09:38 Levothyroxine Sodium (Synthroid) 0.1 mg PO DAILY@0700 [facility] Stop: 11/16/17 06:59 Last Admin: 09/17/17 06:28 Dose: 0.1 mg Magnesium Hydroxide (Milk Of Magnesia) 30 ml PO DAILY PRN PRN Reason: CONSTIPATION Stop: 11/14/17 14:26 Miscellaneous (Fluticasone/Salmeterol [Advair 500-50 Diskus]) 1 puff PO BID [facility] Stop: 11/15/17 16:59 Miscellaneous (Linaclotide [Linzess]) 290 cap PO Q24HR PRN PRN Reason: Constipation Ondansetron HCl (Zofran) 4 mg IV Q8H PRN PRN Reason: Nausea / Vomiting Stop: 11/14/17 09:38 Pantoprazole Sodium (Protonix) 40 mg PO DAILY [facility] Stop: 11/16/17 08:59 Last Admin: 09/17/17 09:21 Dose: 40 mg Prednisone (Deltasone) 40 mg PO DAILY [facility] Stop: 11/16/17 08:59 Last Admin: 09/17/17 09:21 Dose: 40 mg Tamsulosin HCl (Flomax) 0.4 mg PO DAILY [facility] Stop: 11/16/17 08:59 Last Admin: 09/17/17 09:21 Dose: 0.4 mg Temazepam (Restoril) 15 mg PO HS PRN; Protocol PRN Reason: Insomnia Stop: 11/14/17 21:24 Last Admin: 09/15/17 21:38 Dose: 15 mg Temazepam (Restoril) 15 mg PO Q24HR [facility] PRN Reason: Protocol Stop: 11/15/17 13:59 Last Admin: 09/16/17 14:17 Dose: Not Given Zonisamide (Zonegran) 200 mg PO QAM [facility] Stop: 11/16/17 08:59 Last Admin: 09/17/17 09:21 Dose: 200 mg Assessment/Plan - Problem List Patient Problems: All Active Problems CHEST PAIN AND EXERTIONAL DYSPNEA (Acute) - Assessment Assessment: * Elevated D-dimer * perfusion scan normal * no evidence of DVT * CKD HIGH D-dimer likely sec to ckd off heparin for trace blood
--- NOTE | 2017-09-17 15:32 | General Progress Note ---
Subjective - Review of Systems Service Date: 09/17/17 Events since last encounter: no chest pain Objective - Results Result Diagrams: 09/16/17 06:20 09/16/17 06:20 Recent Labs: Laboratory Last Values WBC 6.2 Th/cmm (4.8-10.8) 09/16/17 06:20 RBC 4.36 Mil/cmm (3.80-5.80) 09/16/17 06:20 Hgb 11.9 gm/dL (12-16) L 09/16/17 06:20 Hct 36.5 % (41.0-60) L 09/16/17 06:20 MCV 83.7 fl (80-99) 09/16/17 06:20 MCH 27.4 pg (27.0-31.0) 09/16/17 06:20 MCHC Differential 32.8 pg (28.0-36.0) 09/16/17 06:20 RDW 18.4 % (11.5-20.0) 09/16/17 06:20 Plt Count 162 Th/cmm (150-400) D 09/16/17 06:20 MPV 10.0 fl 09/16/17 06:20 Neutrophils % 63.5 % (40.0-80.0) 09/16/17 06:20 Lymphocytes % 25.1 % (20.0-50.0) 09/16/17 06:20 Monocytes % 9.9 % (2.0-10.0) 09/16/17 06:20 Eosinophils % 1.2 % (0.0-5.0) 09/16/17 06:20 Basophils % 0.3 % (0.0-2.0) 09/16/17 06:20 PT 10.6 SECONDS (9.5-11.5) 09/14/17 18:30 INR 1.02 (0.5-1.4) 09/14/17 18:30 D-Dimer 2270 ng/mL (100-400) H 09/15/17 03:03 Specimen Source ATERIAL 09/14/17 22:46 Sample Site Right Radial 09/14/17 22:46 pH 7.47 (7.35-7.45) H 09/14/17 22:46 pCO2 40.0 mmHg (35.0-45.0) 09/14/17 22:46 pO2 89.0 mmHg (80.0-100.0) 09/14/17 22:46 HCO3 28.8 mEq/L (20.0-26.0) H 09/14/17 22:46 Base Excess 5.0 mEq/L (-3.0-3.0) H 09/14/17 22:46 O2 Saturation 97.0 % (92.0-100.0) 09/14/17 22:46 Javid Test Positive 09/14/17 22:46 Vent Rate N/A 09/14/17 22:46 Inspired O2 28 09/14/17 22:46 Tidal Volume N/A 09/14/17 22:46 PEEP N/A 09/14/17 22:46 Pressure (ins/psv/peep) N/A 09/14/17 22:46 Critical Value N/A 09/14/17 22:46 Sodium 141 mEq/L (136-145) 09/16/17 06:20 Potassium 3.7 mEq/L (3.5-5.1) 09/16/17 06:20 Chloride 106 mEq/L (98-107) 09/16/17 06:20 Carbon Dioxide 28.2 mEq/L (21.0-31.0) 09/16/17 06:20 Anion Gap 10.5 (7.0-16.0) 09/16/17 06:20 BUN 20 mg/dL (7-25) 09/16/17 06:20 Creatinine 1.5 mg/dL (0.7-1.3) H 09/16/17 06:20 Est GFR ( Amer) TNP 09/16/17 06:20 Est GFR (Non-Af Amer) TNP 09/16/17 06:20 BUN/Creatinine Ratio 13.3 09/16/17 06:20 Glucose 127 mg/dL (70-105) H 09/16/17 06:20 POC Glucose 239 MG/DL (70 - 105) H 09/17/17 11:29 Hemoglobin A1c % 7.4 % (4.0-6.0) H 09/15/17 03:03 Calcium 8.9 mg/dL (8.6-10.3) 09/16/17 06:20 Total Bilirubin 1.0 mg/dL (0.3-1.0) 09/14/17 18:30 AST 18 U/L (13-39) 09/14/17 18:30 ALT 16 U/L (7-52) 09/14/17 18:30 Alkaline Phosphatase 74 U/L (34-104) 09/14/17 18:30 Creatine Kinase 40 U/L (30-223) 09/14/17 18:30 Troponin I 0.03 ng/mL (0.01-0.05) 09/15/17 19:28 B-Natriuretic Peptide 292.0 pg/mL (5.0-100.0) H 09/15/17 03:03 Total Protein 6.7 gm/dL (6.0-8.3) 09/14/17 18:30 Albumin 3.3 gm/dL (4.2-5.5) L 09/14/17 18:30 Globulin 3.4 gm/dL 09/14/17 18:30 Albumin/Globulin Ratio 1.0 (1.0-1.8) 09/14/17 18:30 Triglycerides 207 mg/dL (<150) H 09/15/17 03:03 Cholesterol 82 mg/dL (<200) 09/15/17 03:03 LDL Cholesterol Direct 48 mg/dL (75-193) L 09/15/17 03:03 HDL Cholesterol 19 mg/dL (23-92) L 09/15/17 03:03 TSH 1.28 uIU/ml (0.34-5.60) 09/15/17 03:03 Urine Source RANDOM 09/15/17 01:40 Urine Color YELLOW 09/15/17 01:40 Urine Clarity CLOUDY (CLEAR) 09/15/17 01:40 Urine pH 5.0 (4.6 - 8.0) 09/15/17 01:40 Ur Specific [place] 1.025 (1.005-1.030) 09/15/17 01:40 Urine Protein 30 mg/dL (NEGATIVE) H 09/15/17 01:40 Urine Glucose (UA) NEGATIVE mg/dL (NEGATIVE) 09/15/17 01:40 Urine Ketones 15 mg/dL (NEGATIVE) H 09/15/17 01:40 Urine Blood LARGE (NEGATIVE) H 09/15/17 01:40 Urine Nitrate NEGATIVE (NEGATIVE) 09/15/17 01:40 Urine Bilirubin SMALL (NEGATIVE) H 09/15/17 01:40 Urine Urobilinogen 0.2 E.U./dL (0.2 - 1.0) 09/15/17 01:40 Ur Leukocyte Esterase MODERATE (NEGATIVE) H 09/15/17 01:40 Urine RBC 25-50 /hpf (0-5) H 09/15/17 01:40 Urine WBC 6-10 /hpf (0-5) H 09/15/17 01:40 Ur Epithelial Cells OCCASIONAL /lpf (FEW) 09/15/17 01:40 Urine Bacteria 1+ /hpf (NONE SEEN) H 09/15/17 01:40 Urine Yeast MANY /hpf (NONE SEEN) H 09/15/17 01:40 - Physical Exam Vitals and I&O: Vital Signs Temp 98.6 F 09/17/17 12:00 Pulse 89 09/17/17 12:00 Resp 17 09/17/17 12:15 BP 117/70 09/17/17 12:00 Pulse Ox 96 09/17/17 12:00 Intake & Output 09/16/17 09/17/17 09/17/17 18:59 06:59 18:59 Intake Total 50 500 Output Total 900 Balance 50 -400 Weight (lbs) 72.291 kg Intake: Intake, IV Amount 50 cefTRIAXone 1 gm In 50 Sodium Chloride 0.9% 50 ml @ 100 mls/hr IV Q24HR [facility] Rx#:[id number] Oral 500 Output: Urine 900 Other: # Voids 5 # Bowel Movements 0 Active Medications: Current Medications Acetaminophen (Tylenol) 650 mg PO Q4HR PRN PRN Reason: Pain Or Fever above 101F Stop: 11/14/17 09:38 Last Admin: 09/17/17 14:41 Dose: 650 mg Albuterol Sulfate (Albuterol 2.5mg/3ml Neb Ud) 2.5 mg HHN Q2HRT PRN PRN Reason: Shortness of Breath or Wheeze Stop: 11/14/17 09:38 Aspirin (Aspirin Chewable) 81 mg PO DAILY [facility] Stop: 11/16/17 08:59 Last Admin: 09/17/17 09:21 Dose: 81 mg Atorvastatin Calcium (Lipitor) 20 mg PO HS [facility] Stop: 11/15/17 20:59 Last Admin: 09/16/17 20:50 Dose: 20 mg Budesonide (Pulmicort) 0.5 mg HHN BIDRT [facility] Stop: 11/15/17 18:59 Carvedilol (Coreg) 6.25 mg PO DAILY [facility] Stop: 11/16/17 08:59 Last Admin: 09/17/17 09:21 Dose: 6.25 mg Clopidogrel Bisulfate (Plavix) 75 mg PO DAILY [facility] Stop: 11/15/17 08:59 Last Admin: 09/17/17 09:22 Dose: Not Given Colchicine (Colcrys) 0.6 mg PO BID [facility] Stop: 11/15/17 16:59 Last Admin: 09/17/17 09:20 Dose: 0.6 mg Furosemide (Lasix) 40 mg PO QAM [facility] Stop: 11/15/17 08:59 Last Admin: 09/17/17 09:21 Dose: 40 mg Gabapentin (Neurontin) 300 mg PO TID [facility] Stop: 11/15/17 13:59 Last Admin: 09/17/17 14:42 Dose: 300 mg Guaifenesin (Robitussin) 100 mg PO Q4H PRN PRN Reason: Cough or Congestion Stop: 11/14/17 09:38 Ceftriaxone Sodium 1 gm/ (Sodium Chloride) 50 mls @ 100 mls/hr IV Q24HR [facility] Stop: 11/15/17 17:59 Last Infusion: 09/16/17 17:34 Dose: Infused Insulin Aspart (Novolog Insulin Sliding Scale) 0 units SUBQ Q6HR [facility] PRN Reason: Protocol Stop: 11/14/17 00:00 Last Admin: 09/17/17 12:46 Dose: 4 units Insulin Detemir (Levemir Insulin) 20 units SUBQ DAILY [facility] Stop: 11/16/17 08:59 Last Admin: 09/17/17 09:22 Dose: Not Given Ipratropium [place] (Atrovent Neb 0.5mg/2.5ml) 0.5 mg HHN Q2HRT PRN PRN Reason: Shortness of Breath or Wheeze Stop: 11/14/17 09:38 Levothyroxine Sodium (Synthroid) 0.1 mg PO DAILY@0700 [facility] Stop: 11/16/17 06:59 Last Admin: 09/17/17 06:28 Dose: 0.1 mg Magnesium Hydroxide (Milk Of Magnesia) 30 ml PO DAILY PRN PRN Reason: CONSTIPATION Stop: 11/14/17 14:26 Miscellaneous (Fluticasone/Salmeterol [Advair 500-50 Diskus]) 1 puff PO BID [facility] Stop: 11/15/17 16:59 Miscellaneous (Linaclotide [Linzess]) 290 cap PO Q24HR PRN PRN Reason: Constipation Ondansetron HCl (Zofran) 4 mg IV Q8H PRN PRN Reason: Nausea / Vomiting Stop: 11/14/17 09:38 Pantoprazole Sodium (Protonix) 40 mg PO DAILY [facility] Stop: 11/16/17 08:59 Last Admin: 09/17/17 09:21 Dose: 40 mg Prednisone (Deltasone) 40 mg PO DAILY [facility] Stop: 11/16/17 08:59 Last Admin: 09/17/17 09:21 Dose: 40 mg Tamsulosin HCl (Flomax) 0.4 mg PO DAILY [facility] Stop: 11/16/17 08:59 Last Admin: 09/17/17 09:21 Dose: 0.4 mg Temazepam (Restoril) 15 mg PO HS PRN; Protocol PRN Reason: Insomnia Stop: 11/14/17 21:24 Last Admin: 09/15/17 21:38 Dose: 15 mg Temazepam (Restoril) 15 mg PO Q24HR [facility] PRN Reason: Protocol Stop: 11/15/17 13:59 Last Admin: 09/16/17 14:17 Dose: Not Given Zonisamide (Zonegran) 200 mg PO QAM [facility] Stop: 11/16/17 08:59 Last Admin: 09/17/17 09:21 Dose: 200 mg Assessment/Plan - Problem List Patient Problems: All Active Problems CHEST PAIN AND EXERTIONAL DYSPNEA (Acute) - Assessment Assessment: * Elevated D-dimer * perfusion scan normal * no evidence of DVT * CKD HIGH D-dimer likely sec to ckd reassured patient regarding heparin Continue hep proph and follow D-dimer
--- NOTE | 2017-09-18 20:55 | Consultation ---
DATE OF CONSULTATION: 09/15/[address] Quinones. HISTORY AND PHYSICAL: This is an 82-year-old male patient who has 3-vessel coronary artery bypass. The patient was recently admitted from [facility]. The patient had been complaining of shortness of breath, chest pain, and dizziness. PAST MEDICAL HISTORY: Ischemic cardiomyopathy, congestive heart failure, systolic dysfunction, 3-vessel coronary artery bypass, 5 coronary stents, hypertension, urinary tract infection, AICD, sick sinus syndrome with pacemaker, iron deficiency anemia, BPH, diabetes mellitus, CKD stage III, postural hypotension, gout, complex renal cyst, TIA, hypothyroidism, right and left total knee replacement and BPH. FAMILY HISTORY: Unremarkable. SOCIAL HISTORY: No history of smoking, alcohol abuse. ALLERGIES: No known allergies. PHYSICAL EXAMINATION: VITAL SIGNS: Blood pressure 110/70, pulse 78, respirations 28. HEAD: Normocephalic. No lumps or bumps. EYES: Pupils equal, reactive to light. Fundi show AV nicking, sclerae white, conjunctivae pink. NECK: Carotid 2+. Normal upstroke. JVD 10 cm above sternal angle. Thyroid not palpable. Lymph nodes not palpable. CHEST: Shows increased AP diameter. No kyphosis, scoliosis. LUNGS: Bilateral rales. Decreased breath sounds both the bases. HEART: PMI sixth intercostal space with lateral to midclavicular line. S1, S2, S3, S4, soft systolic murmur. ABDOMEN: Soft. Liver, spleen not palpable. No organomegaly. Bowel sounds active. NEUROLOGIC: Unremarkable. EXTREMITIES: Peripheral pulses 1+, pedal edema 2+. CLINICAL IMPRESSION: Congestive heart failure, systolic dysfunction, acute ischemic cardiomyopathy, coronary artery bypass, 3-vessel disease, old myocardial infarction, 5 coronary stents, hypertension, urinary tract infection, AICD, sick sinus syndrome with pacemaker, iron deficiency anemia, BPH, diabetic CKD stage 3, diabetes mellitus type 2, postural hypotension, gout, complex renal cyst, TIA, hypothyroidism, right and left total knee replacement. PLAN: We will admit the patient, start the patient on diuretics, preload afterload reduction, Lovenox, get troponin level and echocardiogram. JOB# [id number]
--- NOTE | 2017-09-21 15:41 | Diagnostic Imaging Report ---
Portable chest x-ray HISTORY: Shortness of breath The heart size is difficult to assess with portable technique in a poor inspiration. No acute focal pulmonary processes. Cardiac electrode lead wire projects over the right ventricle. Surgical suture material and clips noted over the heart. IMPRESSION: 1. No acute focal pulmonary processes 2. Surgical changes along with cardiac electrode lead placement.
== END 2017-09-17 19:55 | DRG 291 ==
LOC: ER 17:58 → ICU 22:54 → TELE 09-15 14:27
PROVIDERS: ADMIT Internal Medicine; ATTEND Internal Medicine
DX: I13.0 Hypertensive heart and chronic kidney disease with heart failure and stage 1 through stage 4 chronic kidney disease, or unspecified chronic kidney disease (principal); I50.21 Acute systolic (congestive) heart failure; E11.22 Type 2 diabetes mellitus with diabetic chronic kidney disease; I25.110 Atherosclerotic heart disease of native coronary artery with unstable angina pectoris; N28.1 Cyst of kidney, acquired; I25.5 Ischemic cardiomyopathy; E03.9 Hypothyroidism, unspecified; D50.9 Iron deficiency anemia, unspecified; F17.210 Nicotine dependence, cigarettes, uncomplicated; N39.0 Urinary tract infection, site not specified; Z96.653 Presence of artificial knee joint, bilateral; E78.1 Pure hyperglyceridemia; N40.0 Benign prostatic hyperplasia without lower urinary tract symptoms; I95.1 Orthostatic hypotension; N18.3 Chronic kidney disease, stage 3 (moderate); M10.9 Gout, unspecified; I25.2 Old myocardial infarction; Z88.1 Allergy status to other antibiotic agents; Z83.3 Family history of diabetes mellitus; Z82.49 Family history of ischemic heart disease and other diseases of the circulatory system; Z95.1 Presence of aortocoronary bypass graft; Z95.5 Presence of coronary angioplasty implant and graft; Z95.0 Presence of cardiac pacemaker; Z86.73 Personal history of transient ischemic attack (TIA), and cerebral infarction without residual deficits
CPT/HCPCS: 36415-UA; 36600-90; 71010-TC; 80048-TC; 80053-TC; 80061-TC; 81001-TC; 82550-TC; 82803-TC; 82948-90; 83036-90; 83880-TC; 84443-TC; 84484-TC; 85025-TC; 85379-TC; 85610-TC; 87086-90; 93005; 93970-TC-50; 94760; A9540; J0696; J1644; J1815; J1956; Z7610